=== PATIENT | female | born 1950 | race Two or more races ===

== ENCOUNTER 2025-02-05 14:32 | Observation (INO) | payer MEDICARE, MEDICAID, SELFPAY ==
--- NOTE | 2025-02-04 07:00 | EKG_ITS ---
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
[2025-02-04 13:21] VITALS: BMI 30.2
[2025-02-04 14:04] LABS: Anion Gap 6 (7-16); BUN/Creatinine Ratio 24 Ratio (12-20); Blood Urea Nitrogen 19 mg/dL (9-23); Calcium 9.0 mg/dL (8.3-10.6); Carbon Dioxide 28.7 mMol/L (20.0-31.0); Chloride 107 mMol/L (98-107); Creatinine (Component) 0.8 mg/dL (0.6-1.3); Estimated Creatinine Clearance 51.8 mL/min (>60); Glucose 224 mg/dL (74-106); Osmolality,Calculated 292 (275-295); Potassium 4.0 mMol/L (3.4-5.1); Sodium 142 mMol/L (136-145); eGFR > 60 See Note
[2025-02-04 14:07] LABS: Basophils # (Auto) 0.0 Thou/mm3 (0.0-0.2); Basophils % (Auto) 1 % (0-2.5); Eosinophils # (Auto) 0.1 Thou/mm3 (0.0-0.5); Eosinophils % (Auto) 3 % (0-10); Hematocrit 36.9 % (36.0-46.0); Hemoglobin 12.5 g/dL (12.0-16.0); Immature Granulocytes Auto 0.02 Thou/mm3 (0.00-0.00); Lymphocytes # (Auto) 1.3 Thou/mm3 (1.0-4.8); Lymphocytes % (Auto) 37 % (10-50); Mean Corpuscular HGB Conc 33.9 g/dl (31.0-37.0); Mean Corpuscular Hemoglobin 28.5 pg (25.0-35.0); Mean Corpuscular Volume 84 fL (80-100); Monocytes # (Auto) 0.5 Thou/mm3 (0.0-0.8); Monocytes % (Auto) 14 % (0-12); Neutrophils # (Auto) 1.5 Thou/mm3 (1.8-7.7); Neutrophils % (Auto) 44 % (37-80); Nucleated Red Blood Cell # 0.00 Thou/mm3 (0.00-0.00); Nucleated Red Blood Cell % 0 /100 WBC (0); Platelet Count 162 Thou/mm3 (140-440); RDW Standard Deviation 38.0 fL (36.4-46.3); Red Blood Count 4.38 Miln/mm3 (4.00-5.20); White Blood Count 3.4 Thou/mm3 (3.6-11.0)
[2025-02-04 14:48] LABS: INR 1.1 (0.9-1.3); Partial Thromboplastin Time 28.9 Seconds (22.0-36.0); Prothrombin Time 12.4 Seconds (9.0-12.2)
[2025-02-05] VITALS (19 sets, daily range): BP systolic 140–181; BP diastolic 53–84; PULSE 52–72; RESP 12–85; TEMP 36.2–37.2; O2SAT 96–100
[2025-02-05] MEDS: DIAZEPAM 5 MG TABLET PO (07:59)
--- NOTE | 2025-02-05 10:00 | ESOP_ITS ---
Cardiac Cath Procedure Procedure Narrative Procedure date 02/05/2025 Title of the procedure 1.abdominal aortogram 2.ipsilateral right iliac angiogram and runoff of the right leg 3.contralateral selective left iliac angiogram 4.contralateral selective left superficial femoral artery angiogram 5.contralateral selective below the knee angiogram of the left leg 6.Rota Deuce atherectomy and thrombectomy of the left external iliac artery, common femoral artery, superficial femoral artery and popliteal artery 7.drug-coated balloon angioplasty of the left external iliac artery, left common femoral artery, left superficial femoral artery and popliteal artery 8.conscious sedation 9.radiographic interpretation supervision 10.ultrasound guidance for right femoral access Indication for the procedure This is a 74-year-old female with past medical history of severe peripheral vascular disease prior history of bilateral SFA stent placement Patient has coronary artery disease prior history of coronary stent placement She started complaining of worsening pain in the left leg patient's did undergo MARCOS which abnormal flow We continued medical management patient leg symptoms are getting worse unable to walk even 1/4-1/2 block without cramping and stopping in the left thigh Therefore invasive assessment of the peripheral vasculature and possible intervention was discussed Risk-benefit and alternate this was all discussed Procedure With the under stringent aseptic condition 1% lidocaine anesthesia continues blood pressure monitoring With ultrasound guidance right femoral arterial access obtained using modified Seldinger technique and 5 Romanian sheath was placed Subsequently using the 5 Romanian sheath ipsilateral right iliac angiogram and runoff of the right leg was done Following that using an IM catheter abdominal aortogram and selective angiogram of the left iliac artery, selective angiogram of the left superficial femoral ar roseline Selective angiogram of the below the knee vessels were done Findings 1.abdominal angiogram shows mild diffuse disease calcified aorta 2.on the right side right common iliac right external iliac has mild disease right superficial femoral artery has a stent starting proximally extending all the way into the adductor canal Picture the stent appears to be have mild in-stent restenosis about 20%. Below the knee vessels right anterior tibial artery ostial region appears to have a 90% lesion however it runs down to the ankle course and supplies the foot, Thank right posterior tibial artery runs down to the ankle course and supplies the foot peroneal artery disappears in the lower calf 3.on the left side left common iliac left external iliac was visualized left external iliac before the stent in the SFA appears to be diffusely diseased with maximum narrowing is about 90% close to the stent origin in the SFA The stent in the SFA is diffusely diseased with in-stent restenosis about 90% in the proximal half, distally it is about 50 to 60% in-stent restenosis Conclusion Significant lesion in the left external iliac artery before the origin of the stent in the SFA, left SFA stent has in-stent restenosis in the proximal have about 90% below that about 50% Recommendation In view of patient lifestyle-limiting symptoms we will proceed with intervention of the these vessels Rota Deuce atherectomy and thrombectomy of the left external iliac artery, left superficial femoral artery in-stent restenosis, left popliteal artery Drug-coated balloon angioplasty of the left external iliac artery, left superficial femoral artery, left popliteal artery Procedure After initial angiographic examination 6 Romanian 45 cm destination sheath was placed at the proximal part of the left external iliac artery using a up and over technique Patient received 5000 units of heparin Initially we attempted to cross the lesion using a Rota Deuce wire however this was found to be difficult Using a Allred cross and airplane pilot photogrammetry 50 wire we were able to cross the occluded segment in the left external iliac artery and a wire was placed distally in the popliteal artery Subsequently using a Allred cross to exchange we exchanged airplane pilot photogrammetry 50 to the Rota Deuce wire Following that the Rota Deuce equipment was prepared in the usual fashion Multiple.Deuce atherectomy and thrombectomy runs of the left external iliac artery, left superficial femoral artery left popliteal artery was done Following that we proceeded to balloon dilatation To this effect 8 x 60 mm drug-coated balloon was used in the external iliac artery balloon was inflated up to 8 lars for 2 minutes Following that another 8 x 60 was used to dilate superficial femoral stent in the left superficial femoral artery again 8 lars for 2 minutes Following that the third balloon 6 x 200 mm balloon was placed distal to these 2 regions and dilated up to 14 lars for 2 minutes Post balloon angioplasty there was less than 10% residual lesion noted Hemostasis was achieved on the right femoral artery by placing a Angio-Seal Patient tolerated the whole procedure well there was no complication Conclusion Successful Rota Deuce atherectomy and thrombectomy of the left iliac artery, left superficial femoral artery, left popliteal artery Drug-coated balloon angioplasty of the left iliac artery, left superficial femoral artery, left popliteal artery
--- NOTE | 2025-02-05 11:07 | PC.NURSE ---
per Dr. Massey, would like patient to be admitted overnight for observation.
[2025-02-05] MEDS: ACETAMINOPHEN 325 MG TABLET 650 MG PO (12:21)
--- NOTE | 2025-02-05 14:30 | PC.NURSE ---
SURGICAL SITE TO RIGHT GROIN AREA ASYMPTOMATIC, NO ACTIVE BLEEDING, NO HEMATOMA NOTED ON RIGHT GROIN AREA. RIGHT FEMORAL PULSE NOTED WITH NO CHANGES IN STRENGHT AND QUALITY UPON PALPATION (weak, baseline), RIGHT DORSALIS PEDIS PULSE NOTED WITH NO CHANGES STRENGHT AND QUALITY (weak, baseline). DISTAL CAPPILARRY REFILL <3 SECONDS (Right Toes). NO NOTED CHANGES IN COLOR OR TEMPERATURE ON RIGHT LOWER EXTREMITY. PATIENT DENIES GENERAL AND LOCALIZED PAIN. NO TINGLING OR NUMBNESS FELT TO RIGHT LOWER EXTREMITY. NO LOSS IN SENSATION TO RIGHT LOWER EXTREMITY. SURGICAL SITE COVERED WITH GAUZE AND TAGADERM DRESSING, WHICH REMAINS IN PLACE, DRY, AND INTACT.
--- NOTE | 2025-02-05 14:41 | PC.NURSE ---
Patient transferred to room 267 post- procedure to the left lower extremity. Right groin surgical site asymptomatic. Patient stable, denies pain and discomfort, No acute changes or deviations from baseline noted at this time. Patient left in bed, FINISH GRINDER at bedside.
[2025-02-05] MEDS: HYDROcodone/APAP 5/325 TABLET 1 TAB PO (15:26)
--- NOTE | 2025-02-05 16:44 | ESHP_ITS ---
<Statement entered by Kamran Durant MD - 02/05/25 18:11> Jessa Yeboah is a 74-year-old female with a past medical history of CAD status post stents, severe peripheral vascular disease, hyperlipidemia, hypertension, type 2 diabetes mellitus on insulin who is being admitted s/p atherectomy and thrombectomy of left iliac artery, left superficial femoral artery, left popliteal artery and angioplasty of left iliac artery, left superficial femoral artery, left popliteal artery. Patient will be monitored overnight and at bedside patient denies any pain, weakness, numbness in her lower extremities. Vital signs show BP of 161/76 but otherwise stable. CBC unremarkable and CHEM panel showed glucose of 224. Patient takes glargine 40 units twice daily but has been n.p.o. all day so we will start initial dose tomorrow morning. Otherwise restarted home BP medications then per cardiology will resume Eliquis tomorrow. Anticipate discharge within next 24-48 hours. ----- Note reviewed and agree with care plan as documented. Please refer to the note below for further details. Plan discussed with attending physician Kamran Durant MD PGY-2 Internal Medicine Documentation for date of: 02/05/25 HPI History of Present Illness History of present illness: HPI: Jessa Yeboah is a 74-year-old female with PMHx of CAD s/p stents, severe peripheral vascular disease, hyperlipidemia, hypertension, T2DM on insulin who is being observed after undergoing left leg angioplasty. Patient states that for more than 5 years she has had worsening leg pain with walking. She used to be able to walk 2 miles daily without any symptoms. However, she can barely walk half a mile and she feels soreness in her legs, unable to continue walking after a relatively short distance. Per daughter on the phone, she used to be an independent lady who took care of her ADLs including cleaning the house washing, and cooking however all of these activities had become burdensome for the patient with worsening activity related bilateral leg pain. Daughter states that patient already completed angioplasty of the right leg 2 weeks ago. Her second interventional treatment today atherectomy, thrombectomy, and angioplasty of the left iliac artery, left superficial femoral artery, left popliteal artery. In the aftermath of the procedure, patient feels mild pain in the left leg but even more so about the right shoulder right upper chest and right neck. Denies weakness, numbness in her lower extremities. She denies headaches, chest pain, GI or urinary symptoms. ED Course: Vital signs showed BP 169/54, HR 71, RR 17, T90 9F, O2 99% on RA. Labs from yesterday showed WBC 3.4, Hgb 12.5, BUN 19, CR 0.8, eGFR >60, glucose 224 Meds: [see Medication List]. 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 [Denies drinking alcohol]. [Denies using marijuana, or illicit drugs]. Exam Vital Signs Temp Pulse Resp BP Pulse Ox O2 Del Method 97.5 F 63 18 157/71 H 100 Room Air 02/05/25 10:12 02/05/25 15:22 02/05/25 14:00 02/05/25 15:22 02/05/25 14:00 02/05/25 14:00 Narrative Exam General: Alert and oriented x3, No apparent distress. Skin: Intact, Warm, no rashes. HEENT: Normocephalic, Atraumatic. Normal neck range of motion, Supple. Trachea midline. Respiratory: Lungs are clear to auscultation, Breath sounds are equal bilaterally with equal chest expansion. Cardiovascular: RRR, normal S1, S2, No murmurs. Distal pulses 2+ Abdomen: Abdomen soft, non-distended, without erythema, or lesions. Normotensive bowel sounds x4. Percussion tympanic. Palpation nontender in all four quadrants. No organomagely. No guarding or rebound present. Musculoskeletal/Extremities: No erythema, swelling, tenderness of any joints. No edema of BLE. DP pulses +2/3 b/l. Full active ROM of all four extremities. Neurologic: NEURO: Oriented x3, cranial nerves II to XII grossly intact. Cerebellar exam (swzpte-hu-pajv, vlam-ve-vkid) intact. Muscle strength 5/5 on UE and LE b/l, Moves extremities x4. Sensation intact to gross touch along C6-T1 and L2-S1 dermatomes. No focal neurologic deficits noted Psych: Thoughts linear and responses appropriate. Results: Labs 02/04/25 12:29 02/04/25 12:29 Quality Measures Quality Measures VTE prophylaxis Advance care planning discussed with:: patient Medications Home Medications and Allergies Home Medications ?Medication ?Instructions ?Recorded ?Confirmed ?Type amlodipine 10 mg tablet 10 mg PO QDAY 02/05/2502/05 History apixaban 2.5 mg tablet (Eliquis) 2.5 mg PO BID 5 02/05/25 History atorvastatin 40 mg tablet 40 mg PO QDAY 02/05/2502/05 History blood sugar diagnostic (FreeStyle 02/05/25 02/05/25 H istory Lite Strips) blood-glucose meter (FreeStyle 02/05/25 02/05/25 Hist ory Lite Meter kit) carvedilol 25 mg tablet 25 mg PO BID 02/05/25 History celecoxib 200 mg capsule (Celebrex) 200 mg PO BID PRN pain 02/05/25 02/05/25 History cephalexin 500 mg capsule 500 mg PO Q6H 02/05/2502/05 History dapagliflozin propanediol 10 mg 10 mg PO QAM 02/05/25 02/05/25 History tablet (Farxiga) insulin glargine 100 unit/mL 40 unit subcut BID 02/05/25 History subcutaneous solution (Lantus U-100 Insulin) insulin regular human 100 unit/mL 5 unit subcut ACHS 0 02/05/25 02/05/25 History injection solution (Novolin R Regular U-100 Insulin) lisinopril 40 mg tablet 40 mg PO QDAY 02/05/2502/05 History nitroglycerin 0.4 mg sublingual 0.4 mg buccal .asdirec tavia PRN 02/05/25 02/05/25 History tablet chest pain pregabalin 100 mg capsule (Lyrica) 100 mg PO BID 02/0502/05/25 History Allergies Allergy/AdvReac Type Severity Reaction Status Date / Time No Known Allergies Allergy Verified 02/05/25 06:22 Visit Medications Acetaminophen (Acetaminophen 325 Mg Tablet) 650 mg PO Q6HR PRN PRN Reason: PAIN SCALE 1-3 (mild Stop: 03/07/25 12:11 Last Admin: 02/05/25 12:21 Dose: 650 mg Hydrocodone Bitart/Acetaminophen (Hydrocodone/Apap 5/325 Tablet) 1 tab PO Q4HR PRN PRN Reason: PAIN SCALE 4-6 (Moderate Stop: 02/10/25 12:30 Last Admin: 02/05/25 15:26 Dose: 1 tab Amlodipine Besylate (Amlodipine Besylate 5 Mg Tablet) 10 mg PO QDAY [facility] Stop: 03/07/25 15:14 Last Admin: 02/05/25 15:22 Dose: 10 mg Atorvastatin Calcium (Atorvastatin Calcium 20 Mg Tablet) 40 mg PO QDAY [facility] Stop: 03/08/25 08:59 Carvedilol (Carvedilol 12.5 Mg Tablet) 25 mg PO BID [facility] Stop: 03/07/25 20:59 Lisinopril (Lisinopril 20 Mg Tablet) 40 mg PO QDAY [facility] Stop: 03/08/25 08:59 Ondansetron HCl (Ondansetron Inj 2 Mg/Ml Inj 2 Ml) 4 mg IVP Q6H PRN; Protocol PRN Reason: NAUSEA OR VOMITING Stop: 03/07/25 12:30 Discontinued Medications Diazepam (Diazepam 5 Mg Tablet) 5 mg PO X1 ONE Stop: 02/05/25 06:20 Last Admin: 02/05/25 07:59 Dose: 5 mg Hydralazine HCl (Hydralazine Inj 20 Mg/Ml Vial) 10 mg IVP X1 ONE Stop: 02/05/25 09:36 Last Admin: 02/05/25 15:21 Dose: Not Given Assessment & Plan Plan Jessa Yeboah is a 74-year-old female with a past medical history of CAD status post stents, severe peripheral vascular disease, hyperlipidemia, hypertension, type 2 diabetes mellitus on insulin who is being admitted s/p angioplasty of Left lower extremity on 02/05/2025. 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 Patient follows Dr Shilpa lynn. Plan: -Place in observation -Start ASA 81mg QD after cardiology approval -carvedilol PO 25mg bid -will resume Eliquis PO 2.5mg bid -pregabalin PO 100mg bid -CBC, Renal panel, Mg #HTN, primary -amlodipine 10mg QD -home med lisinopril PO 40mg QD #HLD -atorvastatin PO 40mg QD #T2DM, insulin dependent Patient takes insulin glargine 40mg bid, however, has been NPO post-procedure all day with glucose in 100's, so initial dose will be given in the morning of tomorrow to avoid hypoglycemia. -Resume insulin glargine 40mg bid -Resume Farxiga PO 10mg QAM -Monitor bedside blood glucose cheks. Health Maintenance: Disposition: Telemetry, anticipate discharge in the next 24h Diet: cardiac PPx DVT: Eliquis 2.5mg bid to be resumed on 02/06/2025 Code Status: full This case was discussed with my attending physician, Dr. Rousseau, and senior resident, Dr Carleen Almeida. Janak Robbins, DO PGY I
[2025-02-06] VITALS (8 sets, daily range): BP systolic 139–154; BP diastolic 48–83; PULSE 61–77; RESP 13–95; TEMP 36.3–37.2; O2SAT 97–98; BMI 28.8
[2025-02-06] MEDS: HYDROcodone/APAP 5/325 TABLET 1 TAB PO (04:23)
[2025-02-06 06:00] LABS: Basophils # (Auto) 0.1 Thou/mm3 (0.0-0.2); Basophils % (Auto) 1 % (0-2.5); Eosinophils # (Auto) 0.2 Thou/mm3 (0.0-0.5); Eosinophils % (Auto) 4 % (0-10); Hematocrit 34.5 % (36.0-46.0); Hemoglobin 11.7 g/dL (12.0-16.0); Immature Granulocytes Auto 0.01 Thou/mm3 (0.00-0.00); Lymphocytes # (Auto) 1.1 Thou/mm3 (1.0-4.8); Lymphocytes % (Auto) 28 % (10-50); Mean Corpuscular HGB Conc 33.9 g/dl (31.0-37.0); Mean Corpuscular Hemoglobin 28.4 pg (25.0-35.0); Mean Corpuscular Volume 84 fL (80-100); Monocytes # (Auto) 0.4 Thou/mm3 (0.0-0.8); Monocytes % (Auto) 11 % (0-12); Neutrophils # (Auto) 2.3 Thou/mm3 (1.8-7.7); Neutrophils % (Auto) 56 % (37-80); Nucleated Red Blood Cell # 0.00 Thou/mm3 (0.00-0.00); Nucleated Red Blood Cell % 0 /100 WBC (0); Platelet Count 161 Thou/mm3 (140-440); RDW Standard Deviation 37.9 fL (36.4-46.3); Red Blood Count 4.12 Miln/mm3 (4.00-5.20); White Blood Count 4.0 Thou/mm3 (3.6-11.0)
[2025-02-06 06:25] LABS: Anion Gap 11 (7-16); BUN/Creatinine Ratio 27 Ratio (12-20); Blood Urea Nitrogen 16 mg/dL (9-23); Calcium 8.8 mg/dL (8.3-10.6); Carbon Dioxide 24.6 mMol/L (20.0-31.0); Chloride 105 mMol/L (98-107); Creatinine (Component) 0.6 mg/dL (0.6-1.3); Estimated Creatinine Clearance 67.3 mL/min (>60); Glucose 205 mg/dL (74-106); Magnesium 1.8 mg/dL (1.6-2.6); Osmolality,Calculated 288 (275-295); Phosphorous 3.0 mg/dL (2.4-5.1); Potassium 3.7 mMol/L (3.4-5.1); Sodium 141 mMol/L (136-145); eGFR > 60 See Note
[2025-02-06] MEDS: INSULIN LISPRO (AdmeLOG) 1 UNIT/0.01 ML UNIT SC ×2 (07:55→12:39)
[2025-02-06] MEDS: Magnesium Sulfate 2 GM Ivpb 2 GM/50 ML BAG IV (07:56)
[2025-02-06] MEDS: ACETAMINOPHEN 325 MG TABLET 650 MG PO (07:56)
[2025-02-06] MEDS: ATORVASTATIN CALCIUM 20 MG TABLET 40 MG PO (09:01)
[2025-02-06] MEDS: INSULIN DEGLUDEC 5 UNIT/0.05 ML (PER 5 UNITS) 40 UNIT SC (09:03)
--- NOTE | 2025-02-06 11:27 | PC.SS ---
RESIDENTIAL CHILD CARE COUNSELOR conducted bedside contact with the patient conduct initial assessment and to discuss discharge planning.? Patient confirmed demographic information.? Patient resides at home with son, Aneudy Yeboah.? Patient is retired.? Patient does not utilize any form of DME to assist with ambulation.? Patient does not utilize home oxygen.? Patient describes the ability to complete ADL?s independently.? Patient identified daughter, Aaron Steen ; as surrogate medical decision maker.? Patient?s PCP is Dev Almeida.? Patient?s silk winding machine operator is Dr. Mead.? Patient utilizes [facility], [place]; for medication services.? Plan is for the patient to return home at the time of discharge.? Family will provide transportation on behalf of the patient.? No further discharge needs identified by the patient.? No further intervention required at this time, high school social studies tutor will be available to address any further concerns.? Next of Kin: Aaron Steen D/C Plan: Home
--- NOTE | 2025-02-06 11:30 | CHAP ---
Patient was visited by the Spiritual Care Volunteer who prayed for them. (Volunteer was in the hospital from 09:30-11:30)
--- NOTE | 2025-02-06 13:05 | PC.SS ---
TECHNICAL PROGRAMS MANAGER confirmed with patient's daughter, Aaron Case ; that patient's son (Denis) will be in route to transport patient home. TECHNICAL PROGRAMS MANAGER updated bedside nurse and charge nurse.
--- NOTE | 2025-02-06 14:33 | PC.SS ---
Rounding Note: Patient to d/c home today.
--- NOTE | 2025-02-06 14:47 | ESDS_ITS ---
<Statement entered by Mara Bassett DO - 02/07/25 08:11> I, Mara Bassett DO, attest that I was physically present for the jaime portions of the service and evaluated the patient with the resident and I reviewed and discussed the case with the resident and agree with the resident's findings and plans of care as documented above <Statement entered by Kamran Durant MD - 02/06/25 18:24> Note reviewed and agree with care plan as documented. Please refer to the note below for further details. Plan discussed with attending physician Dr. Danyelle Durant MD PGY-2 Internal Medicine Planned Discharge Date 02/06/25 DS: Providers Provider Date of admission: 02/05/25 14:32 Primary care physician: Dev Almeida Admitting Provider: Palmer Rousseau MD Attending Provider on Admission: Mara Bassett DO Consults: 02/05/25 15:05 [facility] Referral - Knowledge Deficit Routine Comment: Positive screening for knowledge deficit needs. Attending Provider on DC: Janak Robbins DO Discharging Provider: Janak Robbins DO DS: Diagnosis Problem List Completed Was Problem List Reviewed/Reconciled?: Yes Hospital Course Hospital Course Hospital course: Jessa Yeboah is a 74-year-old female with PMHx of CAD s/p stents, severe peripheral vascular disease, hyperlipidemia, hypertension, T2DM on insulin who was admitted on 02/05/2025 after completing angioplasty of the left lower extremity by Dr. Massey. Patient reported that for 5 years she had had worsening claudication, and increasing limitation in walking distance. Patient reported no pain or other complications from the procedure. The procedure consisted of atherectomy, thrombectomy, and balloon angioplasty of the left iliac artery, left superficial femoral artery, and left popliteal arteries. physical exam demonstrated preserved equal strength and sensation along bilateral lower extremities. The site of catheter entry was clean, noninfected, nonpurulent, and nonerythematous. Patient was found to have hypertension BP 169/54 for home amlodipine 10 mg was resumed in house. Immediately after the procedure patient was kept n.p.o., so insulin regimen was held until the morning after for risk of hypoglycemia and given insulin degludec 40 units in the morning for fingerstick blood glucose 183. 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 Continue taking all other home medications as prescribed ? Follow-up with PCP within 1-2 weeks of discharge ? Follow-up with your ancient art curator, Dr. Massey, within 1-2 weeks of discharge ? You've been started on aspirin 81 mg daily ? If you do not have a PCP, you can follow-up at the [facility] (you can call [phone] to make an appointment) ? Return to ED if symptoms worsen or recur This case was discussed with my attending physician, Dr. Bassett, and senior resident, Carleen Almeida. Janak Robbins, DO PGY I Status at Discharge Cognitive/behavioral status at discharge: stable Functional status at discharge: independent ambulation Overall status at discharge: patient is back to baseline Time Spent with Patient Time attestation: Total time spent providing and/or coordinating discharge services: More than 50% of patient's hospital stay Time spent: Greater than 30 minutes Exam Vital Signs Temp Pulse Resp BP Pulse Ox O2 Del Method 97.4 F 61 18 139/56 H 97 Room Air 02/06/25 12:00 02/06/25 12:02 02/06/25 12:02 02/06/25 12:00 02/06/25 12:02/06/25 12:00 Narrative Exam General: Alert and oriented x3, No apparent distress. Skin: Intact, Warm, no rashes. HEENT: Normocephalic, Atraumatic. Normal neck range of motion, Supple. Trachea midline. Respiratory: Lungs are clear to auscultation, Breath sounds are equal bilaterally with equal chest expansion. Cardiovascular: RRR, normal S1, S2, No murmurs. Distal pulses 2+ Abdomen: Abdomen soft, non-distended, without erythema, or lesions. Normotensive bowel sounds x4. Percussion tympanic. Palpation nontender in all four quadrants. No organomagely. No guarding or rebound present. Musculoskeletal/Extremities: No erythema, swelling, tenderness of any joints. No edema of BLE. DP pulses +2/3 b/l. Full active ROM of all four extremities. Neurologic: NEURO: Oriented x3, cranial nerves II to XII grossly intact. Muscle strength 5/5 on UE and LE b/l, Moves extremities x4. Sensation intact to gross touch along C6-T1 and L2-S1 dermatomes. No focal neurologic deficits noted Psych: Thoughts linear and responses appropriate. Discharge Plan Plan Patient Disposition: HOME (Self Care) Care Plan Goals: ? Continue taking all other home medications as prescribed ? Follow-up with PCP within 1-2 weeks of discharge ? Follow-up with your ancient art curator, Dr. Massey, within 1-2 weeks of discharge ? You've been started on aspirin 81 mg daily ? If you do not have a PCP, you can follow-up at the [facility] (you can call [phone] to make an appointment) ? Return to ED if symptoms worsen or recur Prescriptions/Referrals Prescriptions/Med Rec: New aspirin 81 mg tablet 81 mg PO QDAY 30 Days Qty: 30 0RF Continued amlodipine 10 mg tablet 10 mg PO QDAY atorvastatin 40 mg tablet 40 mg PO QDAY carvedilol 25 mg tablet 25 mg PO BID Rx Instructions: must administer with a meal/food celecoxib [Celebrex] 200 mg capsule 200 mg PO BID PRN (Reason: pain) Eliquis 2.5 mg tablet 2.5 mg PO BID dapagliflozin propanediol [Farxiga] 10 mg tablet 10 mg PO QAM lisinopril 40 mg tablet 40 mg PO QDAY nitroglycerin 0.4 mg tablet, sublingual 0.4 mg buccal .asdirected PRN (Reason: chest pain) Rx Instructions: may repeat every 5min until relief; if pain persist after 3 tablets in 15 min; prompt medical attention is recommended pregabalin [Lyrica] 100 mg capsule 100 mg PO BID insulin glargine [Lantus U-100 Insulin] 100 unit/mL solution 40 unit SUBCUT BID Patient Comments: INJECT 40 UNITS SUBCUTANEOUS TWICE A DAY Novolin R Regular U100 Insulin 100 unit/mL solution 5 unit subcut ACHS Patient Comments: INJECT 10 UNITS SUBCUTANEOUSLY BEFORE MEALS 3 TIMES A DAY Discontinued clopidogrel [Plavix] 75 mg tablet 75 mg PO QDAY No Action cephalexin 500 mg capsule 500 mg PO Q6H (DME) FreeStyle Lite Strips Strip Patient Comments: CHECK 3 TIMES A DAY QUANTITY TO 70 FOR 90 DAYS. (DME) blood-glucose meter [FreeStyle Lite Meter] Kit Patient Comments: USE GLUCOMETER THREE TIMES A DAY FOR GLUCOSE MONITORING Referrals: Dev Almeida [Primary Care Provider] Patient/Caregiver Discharge Instructions Education Materials: Surgery Anesthesia After, Discharge Instructions for ..., Preventing Surgical Site Infections, Heart Device Replacement Print Language: Maori Stand Alone Forms: Ivette Award Info., Patient Portal Info Letter, Work/Release Restrictions Discharge Order Discharge Orders: Discharge (Routine); Ordered 02/06/25 Ordered By: Kamran Durant Quality Discharge Quality Measures VTE prophylaxis
== END 2025-02-06 14:35 | disposition home or self-care (01) ==
LOC: S2NX 14:58
PROVIDERS: Admitting Provider Internal Medicine; PCP Family Medicine; Referring Provider Internal Medicine; Visit Provider Internal Medicine
PROC: (CPT 75600; principal; 2025-02-05 08:30)
DX: E11.51 Type 2 diabetes mellitus with diabetic peripheral angiopathy without gangrene (principal); I25.10 Atherosclerotic heart disease of native coronary artery without angina pectoris; Z95.5 Presence of coronary angioplasty implant and graft; I10 Essential (primary) hypertension; E78.5 Hyperlipidemia, unspecified; T82.856A Stenosis of peripheral vascular stent, initial encounter; Y83.8 Other surgical procedures as the cause of abnormal reaction of the patient, or of later complication, without mention of misadventure at the time of the procedure; Z79.899 Other long term (current) drug therapy; Z79.01 Long term (current) use of anticoagulants; Z95.1 Presence of aortocoronary bypass graft; Z79.84 Long term (current) use of oral hypoglycemic drugs; Z79.4 Long term (current) use of insulin; Z98.62 Peripheral vascular angioplasty status
CPT/HCPCS: 37227; 36415; 75625; 75710; 80048; 83735; 84100; 85025; 85610; 85730; 93005; 99152; 99153; A4649; C1725; C1760; C1769; C1887; C1894; C2623; G0378; J0168; J0461; J1643; J1815; J2250; J2312; J2371; J3010; J3475; J3490; Q9967; A9270; J2305